=== PATIENT | male | born 1965 | race Caucasian/White ===

== ENCOUNTER 2017-11-18 20:29 | Inpatient (IN) ==
[2017-11-18] MEDS ORDERED: Naloxone 0.4 MG/ML INJ IVP PRN (22:50)
--- NOTE | 2017-11-18 22:58 | Internal Med History&Physical ---
Date of Encounter: 11/18/17 Time of Encounter: 22:56 Assessment and Plan (1) Atrial fibrillation Current visit: No Status: Acute dilt gtt, tele, pulse ox start lopressor 50mg BID start lovenox AC check TSH, FT4 card eval for CAD Qualifiers: Atrial fibrillation type: paroxysmal Qualified Code(s): I48.0 - Paroxysmal atrial fibrillation (2) Troponin level elevated Current visit: Yes Status: Acute trend for now repeat EKG in the a.m No chest pain symptom could be demand from AFib ? Will need card eval to r/o CAD given hx (3) URI (upper respiratory infection) Current visit: Yes Status: Acute viral prodrome. Viral RVP pend IVF Qualifiers: URI type: unspecified viral URI Qualified Code(s): J06.9 - Acute upper respiratory infection, unspecified Internal Medicine - H&P: HPI Chief complaint: Cold like symptom History of present illness: Mr. Harris is a 52 year old male who presents with viral prodrome , found AFib RVR and troponemia with no chest symptoms. He developed a URI prodrome 3-4 days ago with sore throat, nasal congestion, cough and had been taking mucinex x 3 days. He presented to PCP office today to check if he had the flu and was found to be in AFib. This led to referral to his local ED where he was found to have a troponemia along with AFib rvr. He was started on dilt gtt for rate control and sent to [facility] for further cardiac eval. He denies any chest pain or CP equivalent symptoms or palpitations. He denies smoking but has a family hx of CAD with MELODY having DE age 59 and mother DE at age 82. Father had irregular heart beat. He is otherwise health and uses prilosec EKG reviewed by self with rate 141, AFib FINDINGS: The lungs are without acute focal process. There is no effusion or pneumothorax. The cardiomediastinal silhouette is without acute process. The osseous structures are without acute process. XR/XR chest 1V portable IMPRESSION: No acute process. Past Med Surg Social Fam HX - Past Medical History Medical history: GERD Psychiatric history: no psych history - Social History Smoking Status: Never smoker Smokeless Tobacco Status: No Alcohol use: none Drug use: none Internal Medicine - H&P: Meds Guaifenesin [Mucinex] 600 mg PO Q12H PRN 11/18/17 [History] Omeprazole Magnesium [Prilosec Otc] 20 mg PO BID 11/18/17 [History] predniSONE [PredniSONE] 40 mg PO DAILY 11/18/17 [History] 3 Allergy/AdvReac Type Severity Reaction Status Date / Time No Known Allergies Allergy Verified 11/18/17 18:07 All Systems PM: A 10-system review of systems was performed and is negative for pertinent findings except as documented above in the HPI. Review of systems: ROS 14 point review of systems reviewed as best as possible given presentation. Pertinent positive or negative as per HPI or otherwise reviewed as negative - Constitutional Vitals: Temp Pulse Resp BP Pulse Ox 98.1 F 100 18 134/94 98 11/18/17 22:48 11/18/17 22:48 11/18/17 22:48 11/18/17 22:48 11/18/17 22:48 Exam: General - AAO x 3 Psych - Appropriate affect/speech. No agitation Eyes - NIEVES. Eye lids intact. No scleral icterus Neuro - No gross peripheral or central neuro deficits with intact CN 2-12 exam on inspection Heart - Irregularly irregular. S1 and S2 present. No added HS/murmurs appreciated. No elevated JVD appreciated. Lung - Adequate air entry b/l, No crackles/wheezes appreciated GI - Soft, non-tender. No hepatosplenomegaly/ascites. BS+ - No CVA/suprapubic tenderness or palpable bladder distension Skin - Intact. No rash/petechiae/ecchymosis. Warm extremities
[2017-11-18] MEDS: 0.9 % Sodium Chloride 1,000 ML IVC SCH (23:46)
[2017-11-18] MEDS: *HR* Enoxaparin 100 MG/ML SYRINGE SQ SCH (23:48)
[2017-11-19 00:23] LABS: Basophils % 0.4 %; Eosinophils # 0.4 K/mcL (0.0-0.6); Hemoglobin 13.9 g/dL (12.9-16.9); Immature Granulocytes % 0.5 % (0-4); Lymphocytes # 1.4 K/mcL (0.6-4.6); Mean Corpuscular HGB Conc 34.8 g/dL (31.6-35.5); Mean Corpuscular Hemoglobin 30.3 pg (28.0-33.3); Mean Corpuscular Volume 87.3 fL (83.0-100.0); Mean Platelet Volume 10.7 fL (9.4-12.4); Monocytes # 1.2 K/mcL (0.0-1.3); Monocytes % 15.4 %; Platelet Count 173 K/mcL (140-400); Red Blood Count 4.58 M/mcL (4.19-5.50); Red Cell Distribution Width 13.1 % (11.5-14.5); Segmented Neutrophils % 61.7 %
[2017-11-19 00:43] LABS: BUN/Creatinine Ratio 17 (6-26); Blood Urea Nitrogen 18 mg/dL (6-20); Calcium 8.7 mg/dL (8.6-10.3); Carbon Dioxide 27 mEq/L (23-29); Chloride 106 mEq/L (98-107); Glucose 139 mg/dL (70-105); Magnesium 1.8 mg/dL (1.6-2.6); Osmolality,Calculated 290 (280-300); Potassium 3.8 mEq/L (3.5-5.1); Sodium 138 mEq/L (136-145); eGFR For African Americans > 60 (> 60); eGFR For Non-African Americans > 60 (> 60)
[2017-11-19 00:55] LABS: Thyroid Stimulating Hormone 2.457 mcIU/mL (0.340-5.600)
[2017-11-19] MEDS ORDERED: 0.9 % Sodium Chloride 500 ML IVC ONE (04:37)
--- NOTE | 2017-11-19 08:57 | Cardiology Consult Note ---
Date of Encounter: 11/19/17 Time of Encounter: 08:53 Assessment and Plan (1) Atrial fibrillation with RVR Current Visit: Yes Status: Acute New onset afib with RVR, unknown timing. He is asymptomatic. HR 140's at PCP office. Rate controlled on cardizem gtt and converted to metoprolol by primary team. AVg HR over 24 hours was 82 bpm. HR 100-112 this morning. TSH is normal. Check TTE. Rate control verses rhythm control discussed. Plan for possible DCCV after 4-6 weeks of anticoagulation if he does not convert on his own. CHADS VASC =0. Will likely not need senior living anticoagulation. I discussed anticoagulation I/U/SE. Patient agrees with plan. I will send [facility] for evans check. Noted to have mild troponin elevation with troponin up to 0.19 in the setting of afib with RVR and URI. Demand ischemia suspected. Check TTE. WIll defer starting AC until further work-up. (2) Troponin level elevated Current Visit: Yes Status: Acute Mild troponin elevation as described above. He denies cardiovascular symptoms. No significant cardiac risk factors. Reports mother with heart disease in her 80 's. Check TTE. Possible stress test vs LHC. Discussion w patient/family: The assessment and plan as outlined above was discussed with the patient and/or family members who expressed understanding and agreement. All questions were answered. Thank you for involving us in the care of your patient. Please call with any questions. History of Present Illness Consult date: 11/19/17 Requesting physician: Alma Woodward Consult reason: New afib Chief complaint: Cold symptoms History of present illness: Mr. Harris is a 52 year old male who presented from PCP office after being found to have atrial fibrillation with RVR. He c/o upper respiratory symptoms for one week including nasal congestion, cough, and sore throat. He was taking mucinex extra strength for two days. He denies palpitations, chest pain, or SOB. Denies significant past medical history. He takes prilosec for acid reflux. He does not smoke. Past Med Surg Social Fam HX - Past Medical History Attestation: Yes The following information was validated with the patient. Medical history: GERD Psychiatric history: no psych history - Social History Smoking Status: Never smoker Smokeless Tobacco Status: No Alcohol use: occasionally (4 beers a week.) Drug use: none - Family History Grandfather Age: 59 Living Status: Hx Family Cardiac Disorders: Yes Father Age: 80 Living Status: Hx Family Cardiac Disorders: Yes Hx Family Cancer: Yes Medications and Allergies Guaifenesin [Mucinex] 600 mg PO Q12H PRN 11/18/17 [History] Omeprazole Magnesium [Prilosec Otc] 20 mg PO BID 11/18/17 [History] predniSONE [PredniSONE] 40 mg PO DAILY 11/18/17 [History] 3 Allergy/AdvReac Type Severity Reaction Status Date / Time No Known Allergies Allergy Verified 11/18/17 18:07 All Systems Review: A 10-system review of systems was performed and is negative for pertinent findings except as documented above in the HPI. Physical Examination Vital Signs, Last 4 Hours Temp Pulse Resp BP Pulse Ox 11/19/17 07:58 98.0 F 79 14 109/75 96 General: Conversant, No Apparent Distress HEENT: Atraumatic, Normocephaly, Mucus Membranes Moist, Other Neck: No JVD, Normal carotid pulses Cardiac: Other (Irregularly irregular) Lungs: Normal Breath Sounds, No Wheeze, Rales, Rhonchi Neuro: Alert and responsive, No focal deficits noted Abdomen: Soft, Non-Tender Skin: No rashes noted on visualized skin Musculoskeletal: No Chest Wall Tenderness Extremities: No Clubbing, No Cyanosis, No Edema, Normal Pulses Results 11/19/17 00:14 11/19/17 00:14 Lab Results 11/19/17 11/19/17 11/19/17 00:14 00:14 00:14 WBC 8.1 Hgb 13.9 Hct 40.0 Plt Count 173 Sodium 138 Potassium 3.8 Chloride 106 Carbon Dioxide 27 BUN 18 Creatinine 1.04 Glucose 139 H Calcium 8.7 Magnesium 1.8 Troponin I 0.11 H* TSH 2.457 11/19/17 05:42 WBC Hgb Hct Plt Count Sodium Potassium Chloride Carbon Dioxide BUN Creatinine Glucose Calcium Magnesium Troponin I 0.09 H* TSH - Imaging and Cardiology Echo: pending - EKG Interpretation EKG results cardiology: personally reviewed Consult Discharge Plan - Plan Referrals: Audrey Barry, ARTIFICIAL [employer]KER [Primary Care Provider] -
[2017-11-19] MEDS: 0.9 % Sodium Chloride 1,000 ML IVC SCH (09:01)
[2017-11-19] MEDS: *HR* Enoxaparin 100 MG/ML SYRINGE SQ SCH ×2 (11:33→23:12)
[2017-11-19] MEDS ORDERED: *HR* Metoprolol 5 MG/5 ML VIAL IVP ONE (17:47)
--- NOTE | 2017-11-19 17:47 | Internal Med Progress Note ---
Date of Encounter: 11/19/17 Time of Encounter: 09:00 - Assessment and plan (1) Atrial fibrillation with RVR Current Visit: Yes Status: Acute Assessment and plan: New-onset, asymptomatic. Unclear etiology. Has been started on IV Cardizem drip , now stopped due to HR in 60s. Started on beta laverne, continue; check Echocardiogram for structural abnormalities; f/up Cardiology consult; CHADS-VASC score low, no indication for senior care anticoagulation; (2) URI (upper respiratory infection) Current Visit: Yes Status: Resolved Qualifiers: URI type: unspecified viral URI Qualified Code(s): J06.9 - Acute upper respiratory infection, unspecified (3) Troponin level elevated Current Visit: Yes Status: Acute Assessment and plan: Noted to have mild troponin leak, peaked troponin 0.11, currently trending down. Likely related to tachycardia. Continue telemetry monitoring. - Subjective Interval history: He denies chest pain, palpitations, shortness of breath. No nausea or vomiting , syncope. Off IV Cardizem drip. - Constitutional Vitals: Temp Pulse Resp BP Pulse Ox 98.3 F 85 18 120/77 94 11/19/17 11:56 11/19/17 11:56 11/19/17 11:56 11/19/17 11:56 11/19/17 11:56 General appearance: Present: A&O X 3, answers questions appropriately - Respiratory Respiratory exam: Present: CTAB. Absent: accessory muscle use, rales, rhonchi, wheezes - Cardiovascular Cardiovascular exam: Present: irregular rhythm, +S1, +S2. Absent: diastolic murmur, gallop, rubs, systolic murmur - GI/Abdominal GI/Abdominal exam: Present: normal bowel sounds, soft, no peritoneal signs. Absent: distended, tenderness - Extremities Exam Extremities exam: Present: full ROM, warm, radial pulses palpable and symmetrical. Absent: calf tenderness, cyanotic, pedal edema - Neurological Exam Neurological exam: Present: CN II-XII intact, oriented X3, no focal deficits. Absent: pronater drift, facial droop, speech deficit Internal Medicine: Result - Labs CBC & Chem 7: 11/19/17 00:14 11/19/17 00:14 Labs: Short CBC 11/19/17 Range/Units 00:14 WBC 8.1 (4.3-11.1) K/mcL Hgb 13.9 (12.9-16.9) g/dL Hct 40.0 (37.5-50.1) % Plt Count 173 (140-400) K/mcL Neutrophils # 5.0 (1.6-8.9) K/mcL BMP 11/19/17 00:14 Sodium 138 Potassium 3.8 Chloride 106 Carbon Dioxide 27 BUN 18 Creatinine 1.04 Glucose 139 H Calcium 8.7 Cardiac Enzymes 11/19/17 11/19/17 11/19/17 Range/Units 00:14 05:42 12:39 Troponin I 0.11 H* 0.09 H* 0.08 H* (< 0.04) ng/mL Consult Discharge Plan - Plan Referrals: Audrey Barry, ENGINE BUILDER [Primary Care Provider] - (web request 11/20/2017)
[2017-11-19] MEDS ORDERED: Acetaminophen 325 MG TABLET PO PRN (21:37)
[2017-11-19] MEDS ORDERED: clonazePAM 0.5 MG TABLET PO STA (23:02)
--- NOTE | 2017-11-20 10:19 | Cardiology Progress Note ---
Date of Encounter: 11/20/17 Time of Encounter: 07:30 Assessment and Plan (1) Atrial fibrillation with RVR Current Visit: Yes Status: Acute New onset afib with RVR, unknown timing. He is asymptomatic. HR 140's at PCP office. RVR this AM in stress lab--stress test cancelled. HR 140's-150's, will restart cardizem gtt now, titrate to keep HR less than 100. Continue betablocker. TSH normal. TTE pending. Rate control verses rhythm control discussed. Plan for possible DCCV after 4-6 weeks of anticoagulation if he does not convert on his own. CHADS VASC =0. 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 I discussed anticoagulation I/U/SE. Patient agrees with plan. I will send [email or web address] for evans check. (2) Troponin level elevated Current Visit: Yes Status: Acute Mild troponin elevation as described above. He denies cardiovascular symptoms. No significant cardiac risk factors. Reports mother with heart disease in her 80 's. TTE pending. Stress test cancelled this AM due to tachycardia, HR 150's. Discussion w patient/family: The assessment and plan as outlined above was discussed with the patient and/or family members who expressed understanding and agreement. All questions were answered. Thank you for involving us in the care of your patient. Please call with any questions. The patient was discussed and reviewed with Dr. Castro who agrees with plan as stated above. Subjective Principal diagnosis: Afib with RVR Interval history: Seen and examined earlier this AM in the stress lab. Afib with RVR, HR 150's. Patient asymptomatic. Objective General: Conversant, No Apparent Distress HEENT: Atraumatic, Normocephaly Cardiac: Other (irregularly irregular) Neuro: Alert and responsive Abdomen: Soft Skin: No rashes noted on visualized skin Musculoskeletal: No Chest Wall Tenderness Extremities: No Edema, Normal Pulses Results 11/19/17 00:14 11/19/17 00:14 Lab Results 11/19/17 12:39 Troponin I 0.08 H* Active Medications Acetaminophen (Tylenol) 650 mg PO Q6HR PRN PRN Reason: Pain Stop: 05/21/18 21:38 Last Admin: 11/19/17 22:40 Dose: 650 mg Enoxaparin Sodium (Lovenox) 100 mg SQ Q12H IRAM PRN Reason: Protocol Stop: 05/20/18 23:01 Last Admin: 11/20/17 11:40 Dose: 100 mg Diltiazem HCl 125 mg/ Sodium (Chloride) 125 mls @ 5 mls/hr IVC .Q24H IRAM; 5 MG/ HR PRN Reason: Protocol Stop: 05/22/18 10:31 Last Titration: 11/20/17 12:06 Dose: 7.5 mg/hr, 7.5 mls/hr Metoprolol Tartrate (Lopressor) 50 mg PO BID IRAM Stop: 05/20/18 23:01 Last Admin: 11/20/17 08:19 Dose: 50 mg Naloxone HCl (Narcan) 0.4 mg IVP Q2MIN PRN PRN Reason: Opioid Reversal Stop: 05/20/18 22:51 - Imaging and Cardiology Stress Test: pending Echo: pending - EKG Interpretation EKG results cardiology: personally reviewed Consult Discharge Plan - Plan Referrals: Audrey Barry, RENT AND MISCELLANEOUS REMITTANCE CLERK [Primary Care Provider] -
[2017-11-20] MEDS: *HR* Enoxaparin 100 MG/ML SYRINGE SQ SCH ×2 (11:40→22:24)
--- NOTE | 2017-11-20 16:30 | Internal Med Progress Note ---
Date of Encounter: 11/20/17 Time of Encounter: 10:15 - Assessment and plan (1) Atrial fibrillation with RVR Current Visit: Yes Status: Acute Assessment and plan: New-onset, asymptomatic. Unclear etiology. Continue beta laverne. Follow-up echocardiogram. Patient continues to have tachycardia, has been restarted on IV Cardizem drip per cardiology. Plan for nuclear stress test with subsequent short-term anticoagulation for possible cardioversion as an outpatient. (2) URI (upper respiratory infection) Current Visit: Yes Status: Resolved Qualifiers: URI type: unspecified viral URI Qualified Code(s): J06.9 - Acute upper respiratory infection, unspecified (3) Troponin level elevated Current Visit: Yes Status: Acute Assessment and plan: Noted to have mild troponin leak, peak troponin 0.11, currently trending down. Likely related to tachycardia. Continue telemetry monitoring. - Subjective Interval history: Continues to deny chest pain, palpitations, shortness of breath. Was taken down to nuclear stress test, which could not be completed due to elevated heart rate. - Constitutional Vitals: Temp Pulse Resp BP Pulse Ox 98.3 F 103 18 124/87 97 11/20/17 12:00 11/20/17 13:17 11/20/17 12:00 11/20/17 13:17 11/20/17 12:00 General appearance: Present: A&O X 3, answers questions appropriately - Respiratory Respiratory exam: Present: CTAB. Absent: accessory muscle use, rales, rhonchi, wheezes - Cardiovascular Cardiovascular exam: Present: irregular rhythm, +S1, +S2. Absent: diastolic murmur, gallop, rubs, systolic murmur - GI/Abdominal GI/Abdominal exam: Present: normal bowel sounds, soft, no peritoneal signs. Absent: distended, tenderness - Extremities Exam Extremities exam: Present: full ROM, warm, radial pulses palpable and symmetrical. Absent: calf tenderness, cyanotic, pedal edema - Neurological Exam Neurological exam: Present: CN II-XII intact, oriented X3, no focal deficits. Absent: pronater drift, facial droop, speech deficit Internal Medicine: Result - Labs CBC & Chem 7: 11/19/17 00:14 11/19/17 00:14 Consult Discharge Plan - Plan Referrals: Audrey Barry LEHR LOADER [Primary Care Provider] - (web request 11/20/2017)
[2017-11-20] MEDS ORDERED: *HR* Metoprolol 5 MG/5 ML VIAL IVP ONE (18:39)
[2017-11-21] MEDS ORDERED: 0.9 % Sodium Chloride 1,000 ML ONE (06:37)
--- NOTE | 2017-11-21 09:48 | Cardiology Progress Note ---
Date of Encounter: 11/21/17 Time of Encounter: 08:00 Assessment and Plan (1) Atrial fibrillation with RVR Current Visit: Yes Status: Acute New onset afib with RVR, unknown timing. He is asymptomatic. HR 140's at PCP office. RVR in stress lab on Wednesday--stress test cancelled, will attempt stress portion on Wednesday if HR stable. Continue cardizem gtt (currently at 15 mg/hr); titrate to keep HR less 80. TSH normal. Prelim TTE results per Dr. Castro, no significant abnormality on echo , EF normal. Discussed with Dr. Castro, recommend starting sotalol 80 mg q12h, patient is agreeable. Daily ECG's. Will need to keep as inpatient for 5 doses. Plan for YANETH guided DCCV in AM, NPO after MN. Has been on therapuetic lovenox since admission. CHADS VASC =0. 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 Eliquis $25/ month. (2) Troponin level elevated Current Visit: Yes Status: Acute Mild troponin elevation as described above. He denies cardiovascular symptoms. No significant cardiac risk factors. Reports mother with heart disease in her 80 's. Prelim TTE normal. Stress test pending, plan to complete in AM. Discussion w patient/family: The assessment and plan as outlined above was discussed with the patient and/or family members who expressed understanding and agreement. All questions were answered. Thank you for involving us in the care of your patient. Please call with any questions. The patient was discussed and reviewed with Dr. Castro who agrees with plan as stated above. Subjective Principal diagnosis: Afib with RVR Interval history: Seen and examined earlier this AM. HR 90's-100's afib on Cardizem gtt 15 mg/hr. Objective Vital Signs, Last 4 Hours Temp Pulse Resp BP Pulse Ox 11/21/17 07:35 98.1 F 97 17 106/71 99 General: Conversant, No Apparent Distress HEENT: Atraumatic, Normocephaly, Mucus Membranes Moist Neck: No JVD, Normal carotid pulses Cardiac: No Murmur, Other (irregularly irregular) Lungs: Normal Breath Sounds, No Wheeze, Rales, Rhonchi Neuro: Alert and responsive, No focal deficits noted Abdomen: Soft, Non-Tender Skin: No rashes noted on visualized skin Musculoskeletal: No Chest Wall Tenderness Extremities: No Clubbing, No Cyanosis, No Edema, Normal Pulses Results 11/19/17 00:14 11/19/17 00:14 Active Medications Acetaminophen (Tylenol) 650 mg PO Q6HR PRN PRN Reason: Pain Stop: 05/21/18 21:38 Last Admin: 11/19/17 22:40 Dose: 650 mg Enoxaparin Sodium (Lovenox) 100 mg SQ Q12H IRAM PRN Reason: Protocol Stop: 05/20/18 23:01 Last Admin: 11/20/17 22:24 Dose: 100 mg Diltiazem HCl 125 mg/ Sodium (Chloride) 125 mls @ 5 mls/hr IVC .Q24H IRAM; 5 MG/ HR PRN Reason: Protocol Stop: 05/22/18 10:31 Last Admin: 11/20/17 22:25 Dose: 15 mg/hr, 15 mls/hr Naloxone HCl (Narcan) 0.4 mg IVP Q2MIN PRN PRN Reason: Opioid Reversal Stop: 05/20/18 22:51 Omeprazole (Prilosec) 40 mg PO BIDAC IRAM PRN Reason: Protocol Stop: 05/23/18 07:31 Last Admin: 11/21/17 07:58 Dose: 40 mg Sotalol HCl (Betapace) 80 mg PO Q12HR IRAM Stop: 05/23/18 18:01 - Imaging and Cardiology Echo: pending - EKG Interpretation EKG results cardiology: personally reviewed Consult Discharge Plan - Plan Instructions: Atrial Flutter (GEN), Atrial Fibrillation (DC), Atrial Fibrillation (GEN), Cardioversion (GEN), Chemical Cardioversion (GEN) Referrals: Audrey Barry [employer] [Primary Care Provider] - (web request 11/20/2017)
--- NOTE | 2017-11-21 15:25 | Internal Med Progress Note ---
Date of Encounter: 11/21/17 Time of Encounter: 10:10 - Assessment and plan (1) Atrial fibrillation with RVR Current Visit: Yes Status: Acute Assessment and plan: New-onset, asymptomatic. Unclear etiology. Thyroid profile within normal limits. Continue telemetry monitoring, beta laverne. Continue IV Cardizem drip , titrate to maintain heart rate less than 90. Echocardiogram shows preserved ejection fraction, 55% with mildly dilated left atrium. Cardiology follow-up appreciated, patient was started on oral sotalol, to be monitored as an inpatient for at least 5 doses. Plan for YANETH and cardioversion tomorrow morning. Continue anticoagulation with therapeutic Lovenox. (2) URI (upper respiratory infection) Current Visit: Yes Status: Resolved Qualifiers: URI type: unspecified viral URI Qualified Code(s): J06.9 - Acute upper respiratory infection, unspecified (3) Troponin level elevated Current Visit: Yes Status: Acute Assessment and plan: Noted to have mild troponin leak, peak troponin 0.11, currently trending down. Likely related to tachycardia. Continue telemetry monitoring. Plan for nuclear stress test in a.m. - Subjective Interval history: Continues to deny chest pain, palpitations, shortness of breath. HR continues to be somewhat high, on IV Cardizem drip; - Constitutional Vitals: Temp Pulse Resp BP Pulse Ox 98.2 F 67 18 106/76 96 11/21/17 11:41 11/21/17 11:41 11/21/17 11:41 11/21/17 11:41 11/21/17 11:41 General appearance: Present: A&O X 3, answers questions appropriately - Respiratory Respiratory exam: Present: CTAB. Absent: accessory muscle use, rales, rhonchi, wheezes - Cardiovascular Cardiovascular exam: Present: irregular rhythm, +S1, +S2. Absent: diastolic murmur, gallop, rubs, systolic murmur - GI/Abdominal GI/Abdominal exam: Present: normal bowel sounds, soft, no peritoneal signs. Absent: distended, tenderness - Extremities Exam Extremities exam: Present: full ROM, warm, radial pulses palpable and symmetrical. Absent: calf tenderness, cyanotic, pedal edema Internal Medicine: Result - Labs CBC & Chem 7: 11/19/17 00:14 11/19/17 00:14 - Impressions Impressions Echocardiogram 11/19/17 08:02 Impressions: LVEF 55%. Normal LV chamber size, wall thickness and function. Mildly dilated left atrium. Trace mitral regurgitation. Mild tricuspid regurgitation. Left Ventricular Wall Motion: Rest Echo Findings All wall segments showed normal motion. Findings: Study Quality * Technically adequate exam. ECG Findings * Normal sinus rhythm. Left Ventricle * LVEF 55%. * Normal LV chamber size, wall thickness and function. * Normal left ventricular diastolic function. Right Ventricle * Normal right ventricular structure and function. Left Atrium * Mildly dilated left atrium. Right Atrium * Normal right atrial size. Interatrial Septum * No evidence of PFO by color Doppler. Aortic Valve * Trileaflet aortic valve. * Trileaflet aortic valve with normal function. Mitral Valve * Normal mitral valve structure and function. * Trace mitral regurgitation. * Leaflets are not restricted. Tricuspid Valve * Normal tricuspid valve structure and function. * Mild tricuspid regurgitation. Pulmonic Valve * Normal pulmonic valve structure and function. Aorta * Normally sized aortic root. Pericardium * The pericardium appears normal. Consult Discharge Plan - Plan Instructions: Atrial Flutter (GEN), Atrial Fibrillation (DC), Atrial Fibrillation (GEN), Cardioversion (GEN), Chemical Cardioversion (GEN) Referrals: Audrey Barry, [employer] [Primary Care Provider] - (web request 11/20/2017)
[2017-11-21] MEDS: *HR* Enoxaparin 100 MG/ML SYRINGE SQ SCH (16:56)
[2017-11-22] MEDS: *HR* Enoxaparin 100 MG/ML SYRINGE SQ SCH ×3 (01:02→23:18)
[2017-11-22 03:44] LABS: Basophils % 0.3 %; Eosinophils # 0.3 K/mcL (0.0-0.6); Eosinophils % 3.7 %; Hematocrit 40.1 % (37.5-50.1); Hemoglobin 13.9 g/dL (12.9-16.9); Immature Granulocytes % 0.5 % (0-4); Lymphocytes # 2.1 K/mcL (0.6-4.6); Lymphocytes % 24.7 %; Mean Corpuscular HGB Conc 34.7 g/dL (31.6-35.5); Mean Corpuscular Volume 86.6 fL (83.0-100.0); Monocytes # 1.1 K/mcL (0.0-1.3); Monocytes % 12.9 %; Platelet Count 185 K/mcL (140-400); Red Blood Count 4.63 M/mcL (4.19-5.50); Red Cell Distribution Width 13.1 % (11.5-14.5); Segmented Neutrophils % 57.9 %
[2017-11-22] MEDS ORDERED: Regadenoson 0.4 MG/5 ML SYRINGE IVP ONE (06:45)
[2017-11-22] MEDS ORDERED: *HR* Metoprolol 5 MG/5 ML VIAL IVP ONE (07:08)
--- NOTE | 2017-11-22 08:24 | Cardiology Progress Note ---
Date of Encounter: 11/22/17 Time of Encounter: 08:00 Assessment and Plan (1) URI (upper respiratory infection) Current Visit: Yes Status: Resolved Per Cardiology: Management per primary service. Qualifiers: URI type: unspecified viral URI Qualified Code(s): J06.9 - Acute upper respiratory infection, unspecified (2) Atrial fibrillation with RVR Current Visit: Yes Status: Acute Per Cardiology: New onset afib with RVR, unknown timing. TSH normal. EF 55%, NSWMA. On IV Cardizem gtt at 10mg/hr. HR afib 80's. Patient is now on Sotalol 80mg PO BID, has only received 2 doses. Will cancel YANETH/DCCV today. CHADS VASC =0. (3) Troponin level elevated Current Visit: Yes Status: Acute Per Cardiology: Mild troponin peak 0.11. Will attempt to wean IV Cardizem gtt. Will add cardizem 30mg PO every 6 hrs. If able to wean off gtt, possible completion of stress test today. Discussion w patient/family: The assessment and plan as outlined above was discussed with the patient who expressed understanding and agreement. All questions were answered. Thank you for involving us in the care of your patient. Please call with any questions. Subjective Principal diagnosis: Afib with RVR Interval history: Denies chest pain, shortness of breath, palpitations. Objective Selected Entries 11/22/17 03:49 11/22/17 07:25 Temperature 98.5 F Pulse Rate 81 Respiratory Rate 16 Blood Pressure 112/68 O2 Sat by Pulse Oximetry 95 Oxygen Delivery Method Room Air General: Conversant, No Apparent Distress HEENT: Atraumatic, Normocephaly, Mucus Membranes Moist Neck: No JVD, Normal carotid pulses Cardiac: Normal S1 and S2, No Murmur, Other (Irregularly irregular) Lungs: Normal Breath Sounds, No Wheeze, Rales, Rhonchi Neuro: Alert and responsive, No focal deficits noted Abdomen: Soft, Non-Tender Skin: No rashes noted on visualized skin Musculoskeletal: No Chest Wall Tenderness Extremities: No Clubbing, No Cyanosis, No Edema, Normal Pulses Results 11/22/17 03:06 11/19/17 00:14 Lab Results 11/22/17 03:06 WBC 8.6 Hgb 13.9 Hct 40.1 Plt Count 185 - Imaging and Cardiology Stress Test: pending - EKG Interpretation EKG results cardiology: other (A. pablo in the 80s) Consult Discharge Plan - Plan Instructions: Atrial Flutter (GEN), Atrial Fibrillation (DC), Atrial Fibrillation (GEN), Cardioversion (GEN), Chemical Cardioversion (GEN) Referrals: Audrey Barry CNP [Primary Care Provider] - (web request 11/20/2017)
[2017-11-22 08:56] LABS: Blood Urea Nitrogen 18 mg/dL (6-20); Calcium 8.8 mg/dL (8.6-10.3); Carbon Dioxide 25 mEq/L (23-29); Chloride 105 mEq/L (98-107); Glucose 103 mg/dL (70-105); Magnesium 1.9 mg/dL (1.6-2.6); Osmolality,Calculated 288 (280-300); Potassium 3.8 mEq/L (3.5-5.1); Sodium 138 mEq/L (136-145)
[2017-11-22 09:22] LABS: BUN/Creatinine Ratio 14 (6-26); eGFR For African Americans > 60 (> 60); eGFR For Non-African Americans 59 (> 60)
--- NOTE | 2017-11-22 11:06 | Event Note ---
Date of Encounter: 11/22/17 Time of Encounter: 11:00 - Cardiology Event Note Cardizem drip now down to 2.5 mg per hour and heart rate 70s to 90s. We'll continue to attempt to wean off and complete stress test today. Baseline ECG with QTC/399 ms, now 422 ms status post 2 doses of sotalol. All questions answered.
--- NOTE | 2017-11-22 15:53 | Internal Med Progress Note ---
Date of Encounter: 11/22/17 Time of Encounter: 11:00 - Assessment and plan (1) Atrial fibrillation with RVR Current Visit: Yes Status: Acute Assessment and plan: New-onset, asymptomatic. Unclear etiology. Thyroid profile within normal limits. Continues to remain slightly tachycardic. Continue IV Cardizem drip, currently at low-dose. Goal to wean off IV drip and plan for nuclear stress test when heart rate is below 100. Continue beta laverne and therapeutic Lovenox. Cardiology recommendations appreciated-has been started on sotalol, plan for possible YANETH and cardioversion tomorrow, if there has been no conversion to sinus rhythm. Continue telemetry monitoring. Echocardiogram shows preserved ejection fraction, 55% with mildly dilated left atrium. (2) URI (upper respiratory infection) Current Visit: Yes Status: Resolved Assessment and plan: Continues to have some sinus pressure but no overt runny nose, cough, congestion or wheezing on examination. Will hold off on antibiotics at this time. Qualifiers: URI type: unspecified viral URI Qualified Code(s): J06.9 - Acute upper respiratory infection, unspecified (3) Troponin level elevated Current Visit: Yes Status: Acute Assessment and plan: Noted to have mild troponin leak, peak troponin 0.11, currently trending down. Likely related to tachycardia. Continue telemetry monitoring. Plan for nuclear stress test today, if heart rate is controlled, below 100. - Subjective Interval history: Remains asymptomatic; no chest pain, palpitations, dyspnea; ambulates independently; - Constitutional Vitals: Temp Pulse Resp BP Pulse Ox 98.1 F 82 12 112/75 97 11/22/17 12:13 11/22/17 12:13 11/22/17 12:13 11/22/17 12:13 11/22/17 12:13 General appearance: Present: A&O X 3, answers questions appropriately - Respiratory Respiratory exam: Present: CTAB. Absent: accessory muscle use, rales, rhonchi, wheezes - Cardiovascular Cardiovascular exam: Present: irregular rhythm, +S1, +S2. Absent: diastolic murmur, gallop, rubs, systolic murmur - GI/Abdominal GI/Abdominal exam: Present: normal bowel sounds, soft, no peritoneal signs. Absent: distended, tenderness - Extremities Exam Extremities exam: Present: full ROM, warm, radial pulses palpable and symmetrical. Absent: calf tenderness, cyanotic, pedal edema Internal Medicine: Result - Labs CBC & Chem 7: 11/22/17 03:06 11/22/17 03:06 Labs: Short CBC 11/22/17 Range/Units 03:06 WBC 8.6 (4.3-11.1) K/mcL Hgb 13.9 (12.9-16.9) g/dL Hct 40.1 (37.5-50.1) % Plt Count 185 (140-400) K/mcL Neutrophils # 5.0 (1.6-8.9) K/mcL BMP 11/22/17 03:06 Sodium 138 Potassium 3.8 Chloride 105 Carbon Dioxide 25 BUN 18 Creatinine 1.28 Glucose 103 Calcium 8.8 Consult Discharge Plan - Plan Instructions: Atrial Flutter (GEN), Atrial Fibrillation (DC), Atrial Fibrillation (GEN), Cardioversion (GEN), Chemical Cardioversion (GEN) Referrals: Audrey Barry [employer] [Primary Care Provider] - (web request 11/20/2017)
[2017-11-23 06:09] LABS: BUN/Creatinine Ratio 16 (6-26); Blood Urea Nitrogen 19 mg/dL (6-20); Calcium 8.6 mg/dL (8.6-10.3); Carbon Dioxide 25 mEq/L (23-29); Chloride 107 mEq/L (98-107); Glucose 105 mg/dL (70-105); Osmolality,Calculated 291 (280-300); Potassium 4.1 mEq/L (3.5-5.1); Sodium 139 mEq/L (136-145); eGFR For African Americans > 60 (> 60); eGFR For Non-African Americans > 60 (> 60)
--- NOTE | 2017-11-23 08:17 | Event Note ---
Date of Encounter: 11/23/17 Time of Encounter: 08:00 - Cardiology Event Note Selected Entries 11/22/17 23:54 11/23/17 04:07 11/23/17 07:01 Blood Pressure 103/73 105/71 110/72 Laboratory Tests 11/19/17 11/19/17 11/19/17 00:14 05:42 12:39 Troponin I 0.11 H* 0.09 H* 0.08 H* STRESS TEST: Impression: Perfusion imaging was negative for ischemia or infarct. Pharmacologic stress ECG is negative for ischemia at level of heart rate achieved. No appreciable change from baseline ECG. Gated EF > 70%. Patient seen with at bedside. He denies any chest pain, short of breath, palpitations. Last dose of Lovenox yesterday evening. Discussed anticoagulation options and agreeable to Eliquis 5mg PO BID-- first dose given now. Assistance card provided. ECG pending. Telemetry reviewed and shows A. fib in the 80s to 110s. Systolic blood pressures in the 100s. Will switch to long-acting Cardizem CD 120 mg by mouth daily. Status post 4 doses of sotalol 80 mg every 12 hours. Plan for AYNETH/DC cardioversion today. All questions answered. Discussed and reviewed with Dr. Aldrich.
[2017-11-23] MEDS: Diltiazem CD (24hr) 120 MG CAPSULE PO SCH (08:52)
[2017-11-23] MEDS: Apixaban 5 MG TABLET PO SCH ×2 (08:52→20:55)
[2017-11-23] MEDS ORDERED: Tetracaine/Benzocaine/Butamben 200MG/SPRAY (100SPY/BOT) MM ONE (12:33)
[2017-11-23] MEDS ORDERED: 0.9 % Sodium Chloride 500 ML IVC ONE ×2 (12:33→14:41)
[2017-11-23] MEDS ORDERED: *HR* Midazolam HCl 2 MG/2 ML VIAL IVP PRN (12:33)
[2017-11-23] MEDS ORDERED: Lidocaine Viscous Oral Soln 15 ML SOLUTION MM PRN (12:33)
[2017-11-23] MEDS ORDERED: *HR* Midazolam HCl 5 MG/5 ML VIAL IVP ONE (13:10)
[2017-11-23] MEDS: *HR* Midazolam HCl 5 MG/5 ML VIAL IVP ONE ×5 (13:50→14:22)
[2017-11-23] MEDS: *HR* FentaNYL (PF) 100 MCG/2 ML VIAL IVP PRN ×4 (13:50→14:10)
--- NOTE | 2017-11-23 14:38 | Event Note ---
Date of Encounter: 11/23/17 Time of Encounter: 14:36 - Cardiology Event Note Successful YANETH/DCCV. Pt currently in SR. 5th dose of Sotalol will be at 6PM. Obtain EKG 2 hours after 5th dose and if QTc stable and pt remains in SR, okay to d/c home. Will coordinate outpt follow-up. Cardiology signing off. Reconsult PRN.
--- NOTE | 2017-11-23 17:58 | Discharge Summary ---
Date of Encounter: 11/24/17 Time of Encounter: 17:56 - Discharge Diagnosis (1) Atrial fibrillation with RVR Priority: Primary Status: Acute (2) Troponin level elevated Priority: Secondary Status: Acute (3) URI (upper respiratory infection) Priority: Secondary Status: Resolved Qualifiers: URI type: unspecified viral URI Qualified Code(s): J06.9 - Acute upper respiratory infection, unspecified - Discharge Medications Prescriptions: Sotalol [Betapace] 80 mg PO Q12HR #60 tablet Apixaban [Eliquis] 5 mg PO BID #60 tablet Diltiazem CD (24hr) [Cardizem CD] 120 mg PO DAILY #30 cap.er.24h Home Medications: Guaifenesin [Mucinex] 600 mg PO Q12H PRN 11/18/17 [History] Omeprazole Magnesium [Prilosec Otc] 20 mg PO BID 11/18/17 [History] Apixaban [Eliquis] 5 mg PO BID #60 tablet 11/23/17 [Rx] Diltiazem CD (24hr) [Cardizem CD] 120 mg PO DAILY #30 cap.er.24h 11/23/17 [Rx] Sotalol [Betapace] 80 mg PO Q12HR #60 tablet 11/23/17 [Rx] Allergies/Adverse Reactions: 3 Allergy/AdvReac Type Severity Reaction Status Date / Time No Known Allergies Allergy Verified 11/18/17 18:07 Procedures/tests Complete & Pending: Procedures Performed prior 72 hours Category Date Time Status ECG 12 lead ECG [ECG] AM 0600 Y 11/22/17 06:00 Completed ECG 12 lead ECG [ECG] AM 0600 Y 11/23/17 06:00 Completed ECG 12 lead ECG [ECG] AM 0600 Y 11/24/17 06:00 Ordered ECG 12 lead ECG [ECG] AM 0600 Y 11/25/17 06:00 Ordered ECG 12 lead ECG [ECG] Routine Y 11/21/17 17:55 Completed EKG [ECG 12 lead ECG] [ECG] Stat Y 11/22/17 07:43 Ordered EV ching guided cardioversion Routine Y 11/23/17 08:12 Completed SP pharm nuclear stress Routine Y 11/22/17 08:00 Completed Date of admission: 11/19/17 00:04 Primary care physician: Audrey Barry CNP Consults: 11/18/17 22:55 Consult to Cardiology [CONS] Routine Comment: Consulting Provider: Cardiology Sary Reason for Consult: new afib, troponemia Call Completed: No Discharging clinician: Dwight Llamas - Patient Status Disposition: Home, Self-Care Condition: Good Functional capacity at discharge: independent ambulation Overall status at discharge: patient is back to baseline - Discharge Instructions Instructions: Diltiazem (By mouth), Sotalol (By mouth), Apixaban (By mouth), Atrial Flutter (GEN), Atrial Fibrillation (DC), Atrial Fibrillation (GEN), Cardioversion (GEN), Chemical Cardioversion (GEN) Follow Up With: Audrey Barry CNP [Primary Care Provider] - (web request 11/20/2017) - Diet and Activity Activity: increase activity as tolerated Diet: advance to your usual diet Hospital course: Mr. Harris is a 52 year old male who presents with URI symptoms, found to be in AFib with RVR and troponemia with no chest symptoms. He developed a URI symptoms for 3 days. He presented to PCP office today to check if he had the flu and was found to be in AFib. This led to referral to his local ED where he was found to have a elevated troponin of 0.19 along with AFib rvr. He was started on diltiazem drip for rate control and sent to [facility] for further cardiac evaluation. He was transitioned to PO cardizem, started on lopressor and lovenox. Cardiology was consulted. Started on Eliquis during admission. Echocardiogram done was unremarkable. Troponin trended down. Stress test done showed no ischemia. Patient had CHING/DCCV done 11/23/17 and successfully converted to sinus rhythm. He is currently receiving his 5th dose of Sotalol at 6 pm. ECG was repeated 2 hours after 5th dose, was normal sinus rhythm and QTc was within normal limits. He was discharged home in stable condition. - Time Spent with Patient Total time spent providing and/or coordinating discharge services: - Constitutional Vitals: Temp Pulse Resp BP Pulse Ox 97.9 F 72 17 112/75 96 11/23/17 15:46 11/23/17 15:46 11/23/17 15:46 11/23/17 15:46 11/23/17 15:46 General appearance: Present: A&O X 3, answers questions appropriately - Head Head exam: Present: atraumatic, normocephalic - Eye Eye exam: Present: PERRL, conjuntiva pink, sclera anicteric Pupils: Present: PERRL - Neck Neck exam general surgery: Present: supple, trachea midline. Absent: lymphadenopathy - Respiratory Respiratory exam: Present: CTAB. Absent: accessory muscle use, rales, rhonchi, wheezes - Cardiovascular Cardiovascular exam: Present: RRR, +S1, +S2. Absent: diastolic murmur, gallop, rubs, systolic murmur - GI/Abdominal GI/Abdominal exam: Present: normal bowel sounds, soft, no peritoneal signs. Absent: distended, tenderness - Extremities Exam Extremities exam: Present: warm, radial pulses palpable and symmetrical. Absent : calf tenderness, cyanotic, pedal edema - Neurological Exam Neurological exam: Present: CN II-XII intact, oriented X3, no focal deficits. Absent: pronater drift, facial droop, speech deficit - Skin Skin exam: Present: dry, intact
--- NOTE | 2017-11-23 19:18 | Electrocardiograph Report ---
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
--- NOTE | 2017-11-23 19:23 | Electrocardiograph Report ---
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
--- NOTE | 2017-11-23 19:41 | Electrocardiograph Report ---
[address] [place], [place] [address] Test Date: 2017-11-22 Pat Name: Adam Harris Department: 112 Room: 2A26 Gender: M Bridge Operator: Sacha : 1965 Requested By: Yojana Adkins Order Number: [id number] Reading MD: Shaista Angulo Measurements Intervals [place] Rate: 88 P: AR: 0 QRS: 82 QRSD: 79 T: 14 QT: 376 QTc: 422 Interpretive Statements ATRIAL FIBRILLATION ABNORMAL RHYTHM ECG Electronically Signed On 11-23-2017 19:40:04 EST by Shaista Angulo
[2017-11-24 08:25] VITALS: BP 109/77
[2017-11-24] MEDS: Apixaban 5 MG TABLET PO SCH (08:28)
[2017-11-24] MEDS: Diltiazem CD (24hr) 120 MG CAPSULE PO SCH (08:28)
--- NOTE | 2017-11-24 08:29 | Event Note ---
Date of Encounter: 11/24/17 Time of Encounter: 08:27 Patient here to receive AM dose of Sotalol, pharmacy was closed yesterday and so received it this AM. VS: initial BP shortly after waking was 90s/38 with normal heart rate. Immediate repeat was SBP 109/77, HR 70. Physical exam: NAD CVS: RRR, pulses 2+ radial and tibial equal bilaterally. Lungs: CTAN Ext: no edema A/P 1) atrial fibrillation - Okay for discharge today with scheduled follow-up with Cardiology.
--- NOTE | 2017-11-24 14:17 | Electrocardiograph Report ---
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
--- NOTE | 2017-11-25 17:03 | Electrocardiograph Report ---
[address] [address] Test Date: 2017-11-23 Pat Name: Adam Harris Department: 112 Room: 2A26 Gender: M Rate Marker: SHARAD : 1965 Requested By: Maris Moyer Order Number: [id number] Reading MD: Richard Angulo Measurements Intervals [place] Rate: 104 P: IN: 0 QRS: 84 QRSD: 82 T: -5 QT: 327 QTc: 388 Interpretive Statements ATRIAL FIBRILLATION WITH RAPID VENTRICULAR RESPONSE NONSPECIFIC T-WAVE ABNORMALITY Electronically Signed On 11-25-2017 17:01:31 EST by Richard Angulo
--- NOTE | 2017-11-25 17:05 | Electrocardiograph Report ---
[address] [address] Test Date: 2017-11-23 Pat Name: Adam Harris Department: 112 Room: 2A26 Gender: M Supervisor Inspection: : 1965 Requested By: Maris Moyer Order Number: [id number] Reading MD: Richard Angulo Measurements Intervals [place] Rate: 72 P: 77 SC: 133 QRS: 91 QRSD: 74 T: 46 QT: 406 QTc: 430 Interpretive Statements SINUS RHYTHM POSSIBLE LEFT ATRIAL ENLARGEMENT BORDERLINE RIGHT AXIS DEVIATION Electronically Signed On 11-25-2017 17:03:44 EST by Richard Angulo
== END 2017-11-24 09:02 | disposition home or self-care (01) | DRG 310 ==
LOC: 2ANU → SUATTDRO 11-19 00:04
PROVIDERS: ADMIT Internal Medicine Hematology & Oncology; ATTEND Internal Medicine

== ENCOUNTER 2017-12-07 08:58 | Observation (INO) ==
--- NOTE | 2017-12-07 10:44 | History & Physical Report ---
Date of Encounter: 12/07/17 Time of Encounter: 10:45 24 Hour HP Update - Instructions Instructions: If the History and Physical is less than 30 days old and was completed prior to A.M. admission and or procedure and has NOT been updated on calendar day of procedure please complete this update prior to performing procedure. - Update Patient reports changes in Medical Condition: No Changes in examination, assessment, or condition: No Changes in Medication: No Preop tests/diagnostics Reviewed: Yes
--- NOTE | 2017-12-07 10:46 | Event Note ---
Date of Encounter: 12/07/17 Time of Encounter: 10:45 - Cardiology Event Note 52-year-old male seen by Dr. Angulo December 03, 2017 with history of atrial fibrillation on sotalol 80 mg by mouth twice a day. Being directly admitted for sotalol increase to had recent YANETH with cardioversion October 2017 with successful conversion to sinus rhythm after one shock. Negative nuclear stress test October 2017. Echo October 2017 showed EF 55%, mildly dilated left atrium, mild TR. Discussed with Dr. Richard Angulo, will decrease Cardizem 120mg PO BID to daily. Goal to dc Cardizem if able. Will increase Sotalol to 120mg PO every 12 hrs. Current ECG SB 50's with QTc= 427ms. Regarding anticoagulation takes Eliquis 5mg PO BID-- has only been on about 2 weeks, has not missed any doses, but if were to need DCCV, would most likely warrant YANETH.
[2017-12-07] MEDS ORDERED: Naloxone 0.4 MG/ML INJ IVP PRN (13:38)
--- NOTE | 2017-12-07 14:33 | Electrocardiograph Report ---
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
[2017-12-07] MEDS: Apixaban 5 MG TABLET PO SCH (20:42)
--- NOTE | 2017-12-08 07:41 | Electrophysiology ProgressNote ---
Date of Encounter: 12/08/17 Time of Encounter: 07:40 Assessment and Plan (1) PAF (paroxysmal atrial fibrillation) Current Visit: Yes Status: Chronic Per EP: Admitted for sotalol dose increase. PO Cardizem dose cut in 1/2, HR and SBP stable, will DC CCB per discussion with Dr. Richard Angulo. S/p 2 doses Sotalol 120mg. ECG shows QTc = 459ms, baseline 427ms. Avg HR 58, SB-SR, few short episodes afib for a few seconds. Discussed and reviewed with Dr. Richard Angulo, potential DC tomorrow PM. On Eliquis 5mg PO BID ~ 2 weeks. Kidney fxn stable. Discussion w patient/family: The assessment and plan as outlined above was discussed with the patient and/or family members who expressed understanding and agreement. All questions were answered. Thank you for involving us in the care of your patient. Please call with any questions. Subjective Principal diagnosis: PAF Interval history: Denies any concerns over night. Denies any chest pain, shortness of breath, palpitations. Reports ambulating without any difficulty. Objective Vital Signs, Last 4 Hours Temp Pulse Resp BP Pulse Ox 12/08/17 07:12 97.8 F 55 18 115/68 94 12/08/17 03:56 97.7 F 60 17 100/63 95 General: Conversant, No Apparent Distress HEENT: Atraumatic Cardiac: Reg Rate and Rhythm, Normal S1 and S2, No Murmur Lungs: Normal Breath Sounds, No Wheeze, Rales, Rhonchi Extremities: No Edema Results Laboratory Tests 11/29/17 11/29/17 08:32 08:32 Hgb 15.2 Hct 44.2 Creatinine 1.23 Est GFR (Non-Af Amer) > 60 Active Medications Apixaban (Eliquis) 5 mg PO BID [facility] Stop: 06/08/18 21:01 Last Admin: 12/07/17 20:42 Dose: 5 mg Naloxone HCl (Narcan) 0.4 mg IVP Q2MIN PRN PRN Reason: SEE COMMENTS Stop: 06/08/18 13:39 Omeprazole (Prilosec) 20 mg PO BIDAC IRAM Stop: 06/08/18 16:31 Last Admin: 12/08/17 06:29 Dose: 20 mg Sotalol HCl (Betapace) 120 mg PO Q12HR IRAM Stop: 06/08/18 18:01 Last Admin: 12/08/17 06:29 Dose: 120 mg - EKG Interpretation EKG results cardiology: other (SB 50's on tele.) - VTE Reasons for not Prescribing Prophylaxis: Not indicated-Anticoagulated or INR therapeutic Consult Discharge Plan - Plan Referrals: Bobby Mohamud MD [Primary Care Provider] - Audrey Barry CNP [Family Provider] -
[2017-12-08] MEDS: Apixaban 5 MG TABLET PO SCH ×2 (08:53→21:00)
[2017-12-08] MEDS ORDERED: Diltiazem CD (24hr) 120 MG CAPSULE PO SCH (09:00)
--- NOTE | 2017-12-08 12:16 | Electrocardiograph Report ---
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
--- NOTE | 2017-12-08 12:18 | Electrocardiograph Report ---
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
--- NOTE | 2017-12-09 09:18 | Discharge Summary ---
Date of Encounter: 12/09/17 Time of Encounter: 09:00 - Discharge Diagnosis (1) PAF (paroxysmal atrial fibrillation) Priority: Primary Status: Chronic Comments: S/p sotalol titration - Discharge Medications Home Medications: Omeprazole Magnesium [Prilosec Otc] 20 mg PO BID 11/18/17 [History] Apixaban [Eliquis] 5 mg PO BID #60 tablet 11/23/17 [Rx] Sotalol [Betapace] 120 mg PO Q12HR tablet 12/09/17 [Rx] Allergies/Adverse Reactions: 3 Allergy/AdvReac Type Severity Reaction Status Date / Time No Known Allergies Allergy Verified 11/18/17 18:07 Procedures/tests Complete & Pending: Procedures Performed prior 72 hours Category Date Time Status ECG 12 lead ECG [ECG] AM 0600 Y 12/08/17 06:00 Completed ECG 12 lead ECG [ECG] AM 0600 Y 12/09/17 06:00 Stop Req ECG 12 lead ECG [ECG] AM 0600 Y 12/10/17 06:00 Stop Req ECG 12 lead ECG [ECG] Routine Y 12/07/17 11:16 Completed ECG 12 lead ECG [ECG] Routine Y 12/08/17 07:45 Completed ECG 12 lead ECG [ECG] Routine Y 12/09/17 06:17 Ordered Date of admission: 12/07/17 10:14 Primary care physician: Bobby Mohamud MD Consults: None Discharging clinician: Chau Torres Anticipated date of discharge: 12/09/17 (this evening ) - Patient Status Disposition: Home, Self-Care Condition: Good Functional capacity at discharge: independent ambulation Overall status at discharge: patient is back to baseline - Discharge Instructions Follow Up With: Audrey Barry CNP [Family Provider] - Bobby Mohamud MD [Primary Care Provider] - 12/13/17 2:00 pm - Diet and Activity Diet: advance to your usual diet - Hospital Course Hospital course: Mr. Harris is a 52 year old male directly admitted for sotalol titration by Dr. Richard Angulo. Patient now on sotalol 120 mg by mouth twice a day and remained sinus bradycardia to sinus rhythm. During hospital stay, had few short episodes A. fib. Cardizem was discontinued. QTC remained stable. Per discussion with Dr. Richard Angulo, plans for discharge this evening after ECG and fifth increased dose of sotalol. Anticoagulated with Eliquis. Prescription sent to pharmacy for increased dose of sotalol. Education provided to and . All questions answered. - Time Spent with Patient Total time spent providing and/or coordinating discharge services: Less than 30 minutes Physical Examination Vital Signs, Last 4 Hours Temp Pulse Resp BP 12/09/17 06:57 98.0 F 76 16 109/72 General: Conversant, No Apparent Distress HEENT: Atraumatic, Normocephaly, Mucus Membranes Moist Neck: No JVD, Normal carotid pulses Cardiac: Reg Rate and Rhythm, Normal S1 and S2, No Murmur Lungs: Normal Breath Sounds, No Wheeze, Rales, Rhonchi Neuro: Alert and responsive, No focal deficits noted Abdomen: Soft, Non-Tender Skin: No rashes noted on visualized skin Musculoskeletal: No Chest Wall Tenderness Extremities: No Clubbing, No Cyanosis, No Edema, Normal Pulses - VTE Reasons for not Prescribing Prophylaxis: Not indicated-Anticoagulated or INR therapeutic
[2017-12-09] MEDS: Apixaban 5 MG TABLET PO SCH ×2 (10:38→20:27)
[2017-12-09 18:39] VITALS: BP 122/79
--- NOTE | 2017-12-12 11:04 | Electrocardiograph Report ---
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
--- NOTE | 2017-12-12 11:41 | Electrocardiograph Report ---
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
--- NOTE | 2017-12-15 01:58 | Electrocardiograph Report ---
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
== END 2017-12-09 20:32 | disposition home or self-care (01) ==
LOC: 3BNU → PREINTOOBSV 08:58
PROVIDERS: ADMIT Internal Medicine Clinical Cardiac Electrophysiology; ATTEND Internal Medicine Clinical Cardiac Electrophysiology